=== PATIENT | female | born 1965 | race Caucasian/White ===

== ENCOUNTER 2024-10-06 17:01 | Emergency (ER) | payer MEDICAID, OTHER ==
[~2024-10-06] VITALS: Ht 177.8 cm; Wt 105.1 kg
[~2024-10-06 17:01] MED LIST: ALBU8HFA PO; ATOR20TA66 PO; BUDE180A5 INH; FURO40TA4 PO; NICO-731 TD; NITR0.4T51 SL; OMEP20CA16 PO
--- NOTE | 2024-10-06 17:37 | ELECTROCARDIOGRAPH REPORT ---
[facility] Test Date: 2024-10-06 Test Time: 17:13:35 Pat Name: LINDA CRUZ Department: EMERGENCY ROOM Room: Gender: F Billing Specialist: BOY : 1965 Requested By: RYAN PHAM Order Number: [id number] Reading MD: Measurements Intervals [place] Rate: 104 P: 137 OH: 148 QRS: 54 QRSD: 73 T: 57 QT: 305 QTc: 402 Interpretive Statements Sinus tachycardia with irregular rate Low voltage, precordial leads Baseline wander in lead(s) V2 Please click the below link to view image of tracing.
[2024-10-06 17:54] LABS: MEAN PLATELET VOLUME 9.0 FL (7.4-10.4); RED CELL DISTRIBUTION WIDTH 13.8 % (11.5-14.5)
--- NOTE | 2024-10-06 17:59 | RADIOLOGY REPORT ---
CHEST RADIOGRAPH Indication: CP Technique: Single frontal view of the chest was obtained COMPARISON: None FINDINGS: Lines and Tubes: None Lungs: Clear Pleura: No effusion. No pneumothorax. Cardiomediastinal contours: Unremarkable Bones: Unremarkable IMPRESSION: 1. No acute disease.
[2024-10-06 18:00] LABS: CREATININE 1.07 MG/DL (0.40-0.90); PRO BRAIN NATRIURETIC PEPTIDE 227 PG/ML (0-125); TOTAL CARBON DIOXIDE 29.7 MMOL/L (24-32); eCRCL 61 ML/MIN; eGFR 52 ML/MIN
[2024-10-06] MEDS: ondansetron/PF 4mg/2ml inj IV ONE (18:36)
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
[2024-10-06] MEDS: metoprolol succinate 25mg (24-HOUR) SR. Tablet PO ONE (19:40)
[2024-10-06 21:11] VITALS: BP 122/71; PULSE 108; RESP 22; TEMP 97.6; O2SAT 96
== END 2024-10-06 21:13 | disposition home or self-care (01) ==
LOC: ER 17:01
DX: I48.91 Unspecified atrial fibrillation (principal); R07.89 Other chest pain; I50.9 Heart failure, unspecified; Z95.1 Presence of aortocoronary bypass graft; Z88.5 Allergy status to narcotic agent; Z88.8 Allergy status to other drugs, medicaments and biological substances
CPT/HCPCS: 36415; 71045; 80048; 83880; 84484; 85025; 93005; 96374; 99285; J2405; A4615

== ENCOUNTER → 2024-10-11 | Outpatient (CLI) | payer MEDICAID, OTHER ==
--- NOTE | 2024-10-12 12:30 | RADIOLOGY REPORT ---
CLINICAL INFORMATION: 59 years old, Female; TRAUMATIC ARTHROPATHY, LEFT SHOULDER. TECHNIQUE: Multisequence multiplanar MRI images of the left shoulder were obtained without contrast. COMPARISON: None FINDINGS: Acromioclavicular joint: There is moderate to marked acromioclavicular hypertrophy and moderate to ma rked edema. There is Type 2 acromion. Small amount of fluid in the subacromial / subdeltoid bursa. Rotator cuff tendons: Moderate tendinosis of the distal supraspinatus and infraspinatus tendons with mild articular surface fraying just proximal to their insertions. No full-thickness or near full-thic kness tear. [id number] tendinosis of the distal subscapularis tendon without visualized tear. T eres minor tendon is intact. Biceps tendon: [id number]-kl-lcmunm tenosynovitis of the long head biceps tendon at the level of the bi cipital groove. Labrum: No labral tear identified. Bones: No fracture or focal marrow contusion. Moderate arthritic changes of the glenohumeral joint wi th joint space narrowing and prominent marginal osteophytes. Muscles: Likely mild fatty changes in the rotator cuff and deltoid musculature. Other: Loose body in the axillary recess measures up to 1.5 cm. IMPRESSION: 1. Motion limited study. 2. Rotator cuff tendinosis with mild articular surface fraying of the distal supraspinatus and infras pinatus tendons. No full-thickness or near full-thickness rotator cuff tear. 3. Moderate to marked acromioclavicular hypertrophy with mild subacromial/ subdeltoid bursitis. 4. Moderate arthritic changes of the glenohumeral joint. 5. Loose body in the axillary recess measuring up to 1.5 cm. 6. Moderate to marked tenosynovitis of the long head biceps tendon at the level of the bicipital groo ve. 7. Additional findings as described above.
== END | disposition home or self-care (01) ==
LOC: MRI02 12:23
PROVIDERS: ATTEND Anesthesiology
DX: S42.002A Fracture of unspecified part of left clavicle, initial encounter for closed fracture (principal); M47.812 Spondylosis without myelopathy or radiculopathy, cervical region; M19.012 Primary osteoarthritis, left shoulder; M65.812 Other synovitis and tenosynovitis, left shoulder; M67.814 Other specified disorders of tendon, left shoulder; X58.XXXA Exposure to other specified factors, initial encounter; Y93.89 Activity, other specified; Y92.89 Other specified places as the place of occurrence of the external cause; Y99.8 Other external cause status
CPT/HCPCS: 73221

== ENCOUNTER 2025-02-01 13:02 | Outpatient (CLI) | payer MEDICAID ==
--- NOTE | 2025-02-01 15:31 | RADIOLOGY REPORT ---
PROCEDURE: CT CT CHEST Reason for study/Clinical History: SOLITARY PULMONARY NODULE Comparison Study: DI CHEST,SINGLE VIEW on DOS: 10/06/24, CHEST,SINGLE VIEW on DOS: 10/05/21, CTA CHEST on DOS: 10/04/21, CHEST,SINGLE VIEW on DOS: 10/04/21 TECHNIQUE: Multidetector CT of the chest was performed from the lung apices to the upper abdomen without the use of intravenous contract. Axial, coronal and sagittal multiplanar reformats were performed. Radiation Dose Information: CT Dose: CTDI volume is 18.68 mGy. Dose-length product is 676.44 mGy*cm The dose indicators for CT are the volume Computed Tomography (CT) Dose Index (CTDIvol) and the Dose Length Product (DLP), and are measured in units of mGy and mGy-cm, respectively. These indicators are not patient dose, but values generated from the CT scanner acquisition factors. The report includes radiation exposure data for exposures received during this examination. FINDINGS: Lower neck: Unremarkable. Lungs: Central airways patent. Moderate diffuse centrilobular emphysema. No suspect pulmonary nodules Heart/Vascular Structures: Normal heart size. No pericardial effusion. Lymph Nodes: No adenopathy Pleura: No pleural effusion or significant pneumothorax. Musculoskeletal: No acute osseous abnormality. Soft tissues: Normal. Upper abdomen: Moderate hiatal hernia. IMPRESSION: No suspect pulmonary nodules. Radiation optimization: All CT scans at this facility use at least one of these dose optimization techniques: automated exposure control mA and/or kV adjustment per patient size (includes targeted exams where dose is matched to clinical indication) or iterative reconstruction.
== END 2025-02-01 23:59 | disposition home or self-care (01) ==
LOC: RAD 13:02
PROVIDERS: ATTEND Family Medicine
DX: R91.1 Solitary pulmonary nodule (principal); J43.2 Centrilobular emphysema; K44.9 Diaphragmatic hernia without obstruction or gangrene
CPT/HCPCS: 71250